=== PATIENT | female | born 1960 | race Two or more races ===

== ENCOUNTER 2018-08-05 15:54 | Emergency (ER) | payer MEDICAID ==
[~2018-08-05] VITALS: Ht 157.5 cm; Wt 50.3 kg
[2018-08-05] MEDS ORDERED: IBUPROFEN 600 MG TABLET PO ONE ×2 (18:33→19:30)
--- NOTE | 2018-08-05 18:39 | NUR ---
IBUPROFEN 600MG GIVEN VERBAL ORDERED BY DR. BUSH.
[2018-08-05 19:14] VITALS: BP 119/72
== END 2018-08-05 19:15 | disposition home or self-care (01) ==
LOC: ER 15:56
DX: J40 Bronchitis, not specified as acute or chronic (principal)
CPT/HCPCS: 71045-TC; 82962-TC; 87400